=== PATIENT | female | born 1990 | race Caucasian/White ===

== ENCOUNTER 2017-03-24 23:29 | Emergency (ER) | payer OTHER ==
[~2017-03-24] VITALS: Ht 157.5 cm; Wt 81.7 kg
[~2017-03-24 23:29] MED LIST: BENADRYL25 MG PO; BUSPIRONE HCL10 MG PO; GABAPENTIN 100100 MG PO; IBUPROFEN 600600 M1 PO; IBUPROFEN 800800 M1 PO; NAPROSYN500 MG PO; NOHOMEMEDICATIONS; PEPCID20 MG PO; PREDNISONE 20 M20 MG PO; PROTONIX40 MG PO; TRAMADOL 50 MG50 MG PO; WELLBUTRIN 75 M75 M1 PO; XANAX 0.25 MG0.25 MG PO
[2017-03-24 23:53] LABS: URINE BILIRUBIN NEGATIVE (Negative); URINE BLOOD TRACE (Negative); URINE COLOR YELLOW; URINE GLUCOSE-RANDOM* NEGATIVE (Negative); URINE KETONES NEGATIVE (Negative); URINE NITRITE NEGATIVE (Negative); URINE PROTEIN (DIPSTICK) NEGATIVE (Negative); URINE SPECIFIC GRAVITY >= 1.030 (1.003-1.035); URINE UROBILINOGEN 0.2 E.U./dl (0.2-1.0)
[2017-03-25 00:08] LABS: ABSOLUTE NEUTROPHILS 8.6 thou/uL (1.4-8.2); BASOPHILS 1.1 % (0.0-2.0); HEMATOCRIT 41.1 % (37.0-47.0); HEMOGLOBIN 13.8 gm/dL (12.0-15.0); LYMPHOCYTES 22.4 % (24.0-44.0); MCH 28.4 pg (26.0-34.0); MCHC 33.7 g/dL (28.0-37.0); MCV 84.2 fL (80.0-100.0); MONOCYTES 6.9 % (1.0-8.0); PLATELET COUNT 273 thou/uL (150-400); POLYS 68.6 % (36.0-66.0); RBC 4.88 mil/uL (4.20-5.00); RDW 13.3 % (10.5-14.5); WBC 12.5 thou/uL (4.0-11.0)
[2017-03-25 00:13] LABS: ANION GAP 12 mmol/L (7-16); BUN 10 mg/dL (7-18); CALCIUM 9.2 mg/dL (8.5-10.1); CHLORIDE 105 mmol/L (98-107); CO2 23 mmol/L (21-32); POTASSIUM 4.1 mmol/L (3.5-5.1); SODIUM 140 mmol/L (136-145)
[2017-03-25 00:17] LABS: ALBUMIN 4.1 g/dL (3.4-5.0); ALKALINE PHOSPHATASE 72 U/L (46-116); DIRECT BILIRUBIN < 0.1 mg/dL (<0.1-0.3); SGOT 21 U/L (15-37); SGPT 26 U/L (30-65); TOTAL BILIRUBIN 0.3 mg/dL (<0.1-1.0)
[2017-03-25 00:23] LABS: GLUCOSE 101 mg/dL (74-106)
[2017-03-25 00:28] LABS: MANUAL DIFF NO
[2017-03-25] MEDS ORDERED: NORCO 5-325 TA1 EACH PO (00:57)
[2017-03-25 01:43] VITALS: BP 103/52
== END 2017-03-25 01:49 | disposition home or self-care (01) ==
LOC: ER 23:29
PROVIDERS: Emergency Medicine
DX: M54.9 Dorsalgia, unspecified (principal); N83.202 Unspecified ovarian cyst, left side; R19.7 Diarrhea, unspecified; M79.1 Myalgia; Z87.442 Personal history of urinary calculi; Z88.8 Allergy status to other drugs, medicaments and biological substances

== ENCOUNTER 2019-04-14 16:32 | Emergency (ER) | payer OTHER ==
[~2019-04-14] VITALS: Ht 154.9 cm; Wt 86.2 kg
[~2019-04-14 16:32] MED LIST changes: +NORCO 5-325 TA1 EACH PO
[2019-04-14] MEDS ORDERED: WELLBUTRIN 75 M75 M1 (16:44)
[2019-04-14] MEDS ORDERED: PROPRANOLOL 1010 M1 PO (16:46)
[2019-04-14 17:11] LABS: URINE BILIRUBIN NEGATIVE (Negative); URINE BLOOD 3+ (Negative); URINE CLARITY CLEAR; URINE COLOR YELLOW; URINE GLUCOSE-RANDOM* NEGATIVE (Negative); URINE KETONES NEGATIVE (Negative); URINE LEUKOCYTES-REFLEX NEGATIVE (Negative); URINE NITRITE-REFLEX NEGATIVE (Negative); URINE PROTEIN (DIPSTICK) NEGATIVE (Negative); URINE SPECIFIC GRAVITY 1.025 (1.005-1.035); URINE UROBILINOGEN 0.2 E.U./dl (0.2-1.0)
[2019-04-14 17:18] LABS: BACTERIA-REFLEX 1-9 Few /HPF (None Seen); CASTS None Seen /LPF (None Seen); CRYSTALS None Seen /LPF (None Seen); SQUAMOUS 0-3 Few /LPF (0-3); URINE RBC 0-2 Rare /HPF (0-2); URINE WBC-REFLEX 0-5 Rare /HPF (0-5)
[2019-04-14 17:36] LABS: ABSOLUTE NEUTROPHILS 5.3 thou/uL (1.4-8.2); BASOPHILS 1.5 % (0.0-2.0); EOSINOPHILS 1.8 % (0.0-3.0); HEMATOCRIT 37.3 % (37.0-47.0); HEMOGLOBIN 12.5 gm/dL (12.0-15.0); LYMPHOCYTES 28.9 % (24.0-44.0); MCH 28.2 pg (26.0-34.0); MCHC 33.5 g/dL (28.0-37.0); MCV 84.2 fL (80.0-100.0); MONOCYTES 7.3 % (1.0-8.0); PLATELET COUNT 287 thou/uL (150-400); POLYS 60.5 % (36.0-66.0); RBC 4.43 mil/uL (4.20-5.00); WBC 8.8 thou/uL (4.0-11.0)
[2019-04-14 17:44] LABS: CALCIUM 9.1 mg/dL (8.5-10.1); CREATININE 1.1 mg/dL (0.6-1.0); POTASSIUM 3.8 mmol/L (3.5-5.1)
[2019-04-14 17:50] LABS: TOTAL BILIRUBIN 0.5 mg/dL (<0.1-1.0); TOTAL PROTEIN 7.6 g/dL (6.4-8.2)
[2019-04-14] MEDS ORDERED: PROTONIX 20 MG20 M1 PO (19:31)
[2019-04-14] MEDS ORDERED: PHENERGAN 25 MG25 M1 PO (19:31)
[2019-04-14] MEDS ORDERED: PEPCID20 MG PO (19:31)
[2019-04-14] MEDS ORDERED: BENTYL 20 MG TA20 M1 PO (19:31)
[2019-04-14 19:41] VITALS: BP 107/68
== END 2019-04-14 19:42 | disposition home or self-care (01) ==
LOC: ER 16:32
PROVIDERS: Physician Assistant
DX: K80.50 Calculus of bile duct without cholangitis or cholecystitis without obstruction (principal); R11.2 Nausea with vomiting, unspecified; R10.13 Epigastric pain; R42 Dizziness and giddiness; R10.11 Right upper quadrant pain; Z88.8 Allergy status to other drugs, medicaments and biological substances